=== PATIENT | male | born 1970 | race Caucasian/White ===

== ENCOUNTER 2020-04-03 16:15 | Emergency (ER) | payer MEDICARE, OTHER ==
[~2020-04-03 16:15] MED LIST: CENTRUM COMPLE1 EACH PO; CLARITIN10 M2 PO; KEFLEX500 MG PO; NORCO 7.5-3251 EACH PO
[2020-04-03 17:21] LABS: HEMOGLOBIN 15.8 gm/dl (14.0-17.5); RED BLOOD COUNT 5.04 M/UL (4.20-5.50); WHITE BLOOD COUNT 14.4 K/UL (4.5-11.0)
[2020-04-03 17:49] LABS: BUN/CREATININE RATIO 19 (0-10)
[2020-04-03] MEDS ORDERED: ZOFRAN4 MG PO (20:11)
[2020-04-03] MEDS ORDERED: PERCOCET 5/325 T1 EA PO (20:21)
[2020-04-05 09:12] LABS: HBSAG SCREEN Negative (Negative); HEP A AB, IGM Negative (Negative); HEP B CORE AB, IGM Negative (Negative); HEP C VIRUS AB <0.1 (0.0-0.9)
== END 2020-04-03 20:35 | disposition home or self-care (01) ==
LOC: ER1 16:15
PROVIDERS: Physician Assistant
DX: C24.9 Malignant neoplasm of biliary tract, unspecified (principal); K83.1 Obstruction of bile duct; Z87.19 Personal history of other diseases of the digestive system; Z90.49 Acquired absence of other specified parts of digestive tract; Z87.442 Personal history of urinary calculi; Z88.2 Allergy status to sulfonamides
CPT/HCPCS: 36415; 80053; 80074; 80307; 81001; 82150; 83690; 85025; 85610; 96374; 96375; 99284; J2270; J2405; Q9967

== ENCOUNTER → 2020-12-24 | Outpatient (CLI) | payer MEDICARE, OTHER ==
[~2020-12-24] MED LIST changes: +PERCOCET 5/325 T1 EA PO; +ZOFRAN4 MG PO
[2020-12-25 08:13] LABS: ALPHA-1-ANTITRYPSIN, SERUM 180 mg/dL (101-187)
[2020-12-25 12:13] LABS: HBSAG SCREEN Negative (Negative); HEP A AB, IGM Negative (Negative); HEP B CORE AB, IGM Negative (Negative); HEP C VIRUS AB <0.1 (0.0-0.9); MITOCHONDRIAL (M2) ANTIBODY <20.0 Units (0.0-20.0)
== END ==
LOC: US 08:00
PROVIDERS: Internal Medicine Gastroenterology
DX: R94.5 Abnormal results of liver function studies (principal); Z90.49 Acquired absence of other specified parts of digestive tract
CPT/HCPCS: 36415; 76705; 80074; 80076; 82103; 82728; 83540; 83550; 86038

== ENCOUNTER 2021-01-08 17:17 | Emergency (ER) | payer MEDICARE, OTHER ==
[2021-01-08 17:48] LABS: RED BLOOD COUNT 4.92 M/UL (4.20-5.50); WHITE BLOOD COUNT 11.6 K/UL (4.5-11.0)
[2021-01-08 18:12] LABS: BUN/CREATININE RATIO 13 (0-10)
[2021-01-08] MEDS ORDERED: ZOFRAN ODT 4 MG4 MG PO (20:45)
[2021-01-08] MEDS ORDERED: LODINE CAP 300300 MG PO (20:45)
== END 2021-01-08 20:58 | disposition home or self-care (01) ==
LOC: ER1 17:17
DX: R51.9 Headache, unspecified (principal); M79.10 Myalgia, unspecified site; E78.5 Hyperlipidemia, unspecified; Z90.49 Acquired absence of other specified parts of digestive tract; Z88.2 Allergy status to sulfonamides; Z20.822 Contact with and (suspected) exposure to COVID-19
CPT/HCPCS: 71045; 80053; 81001; 83690; 85025; 87081; 87086; 87880; 96374; 99284; J2405; J7030; U0002

== ENCOUNTER → 2021-01-16 | Outpatient (CLI) | payer MEDICARE, OTHER ==
[~2021-01-16] MED LIST changes: +LODINE CAP 300300 MG PO; +ZOFRAN ODT 4 MG4 MG PO
== END ==
LOC: RAD 15:26
DX: R91.1 Solitary pulmonary nodule (principal)
CPT/HCPCS: 71046

== ENCOUNTER → 2021-01-29 | Outpatient (CLI) | payer MEDICARE, OTHER | LOC: KOH-I 15:37 | DX: R04.2 Hemoptysis (principal); R91.1 Solitary pulmonary nodule | CPT/HCPCS: 71250 ==

== ENCOUNTER → 2021-02-05 | Outpatient (CLI) | payer MEDICARE, OTHER | LOC: MRI 09:04 | DX: R93.2 Abnormal findings on diagnostic imaging of liver and biliary tract (principal) | CPT/HCPCS: 74181 ==

== ENCOUNTER → 2021-02-21 | Outpatient (CLI) | payer MEDICARE, OTHER | LOC: CT 02-18 08:00 | DX: K86.9 Disease of pancreas, unspecified (principal); K76.89 Other specified diseases of liver; R91.8 Other nonspecific abnormal finding of lung field | CPT/HCPCS: 74170; Q9967 ==

== ENCOUNTER → 2021-03-14 | Outpatient (CLI) | payer MEDICARE, OTHER ==
[2021-03-16 07:10] LABS: ALBUMIN 4.6 g/dL (3.8-4.9); ALKALINE PHOSPHATASE 223 IU/L (44-121); ALT (SGPT) 43 IU/L (0-44); AST (SGOT) 31 IU/L (0-40); BILIRUBIN, DIRECT 0.26 mg/dL (0.00-0.40); BILIRUBIN, TOTAL 0.9 mg/dL (0.0-1.2); PROTEIN, TOTAL 7.7 g/dL (6.0-8.5)
[2021-03-18 17:11] LABS: ATYPICAL PANCA <1:20 titer (Neg:<1:20); CYTOPLASMIC (C-ANCA) <1:20 titer (Neg:<1:20); PERINUCLEAR (P-ANCA) <1:20 titer (Neg:<1:20)
== END ==
LOC: LAB 16:04
PROVIDERS: Internal Medicine Gastroenterology
DX: R94.5 Abnormal results of liver function studies (principal)
CPT/HCPCS: 36415; 80076; 86256

== ENCOUNTER → 2021-09-13 | Outpatient (CLI) | payer MEDICARE, OTHER | LOC: KOH-I 09:26 | DX: R74.8 Abnormal levels of other serum enzymes (principal); R79.89 Other specified abnormal findings of blood chemistry; R73.9 Hyperglycemia, unspecified | CPT/HCPCS: 76700 ==

== ENCOUNTER → 2021-10-17 | Outpatient (CLI) | payer MEDICARE, OTHER | LOC: CT 09-19 09:30 | DX: R74.8 Abnormal levels of other serum enzymes (principal); R79.89 Other specified abnormal findings of blood chemistry; K76.9 Liver disease, unspecified | CPT/HCPCS: 74170; Q9967 ==

== ENCOUNTER → 2021-11-26 | Outpatient (CLI) | payer MEDICARE, OTHER ==
[2021-11-26 14:37] LABS: BUN/CREATININE RATIO 17 (0-10)
== END ==
LOC: LAB 12:59
PROVIDERS: Family Medicine
DX: R73.9 Hyperglycemia, unspecified (principal)
CPT/HCPCS: 36415; 80053; 83036